=== PATIENT | male | born 1995 | race Two or more races ===

== ENCOUNTER 2017-08-21 02:48 | Emergency (ER) | payer SELFPAY ==
[2017-08-21] MEDS ORDERED: HALOPERIDOL LACT 5 MG/ML INJ ONE (02:59)
[2017-08-21] MEDS ORDERED: HALOPERIDOL LACT 5 MG/ML INJ IVP ONE (03:07)
[2017-08-21] MEDS ORDERED: ONDANSETRON 4 MG/2 ML VIAL IVP ONE (03:07)
[2017-08-21 03:11] VITALS: TEMP 97.2
--- NOTE | 2017-08-21 05:01 | EDPHY ---
H & P Stated Complaint: ETOH and combative Time Seen by Provider: 08/21/17 02:52 HPI/ROS: HPI The [facility] where he was taken for alcohol intoxication with combative behavior. He was yelling and screaming there and fell several times and vomited. He was too difficult to manage there so he was transferred here via EMS. The patient denies any complaints currently. REVIEW OF SYSTEMS Constitutional: No fever, no chills. Eyes: No discharge. ENT: No sore throat. Cardiovascular: No chest pain, no palpitations. Respiratory: No cough, no shortness of breath. Gastrointestinal: No abdominal pain, no vomiting. Genitourinary: No hematuria. Musculoskeletal: No back pain. Skin: No rashes. Neurological: No headache. PMHx: Healthy Soc Hx: Alcohol use PHYSICAL General Appearance: Alert, no distress Head: Forehead abrasion Eyes: Pupils equal and round no pallor or injection ENT, Mouth: Mucous membranes moist Respiratory: There are no retractions, lungs are clear to auscultation Cardiovascular: Regular rate and rhythm Gastrointestinal: Abdomen is soft and non-tender, no masses, bowel sounds normal Neurological: A&O, moves all extremities Skin: Warm and dry, no rashes Musculoskeletal: Neck is supple non tender Extremities: symmetrical, full range of motion Psychiatric: Patient is agitated, yelling and screaming Source: Patient, EMS Exam Limitations: Intoxication - Personal History Current Tetanus/Diphtheria Vaccine: Unsure Current Tetanus Diphtheria and Acellular Pertussis (TDAP): Unsure - Medical/Surgical History Hx Asthma: No Hx Chronic Respiratory Disease: No Hx Diabetes: No Hx Cardiac Disease: No Hx Renal Disease: No Hx Cirrhosis: No Hx Alcoholism: No Hx HIV/AIDS: No Hx Splenectomy or Spleen Trauma: No - Social History Smoking Status: Unknown if ever smoked Constitutional: Initial Vital Signs Temperature (C) 36.2 C 08/21/17 03:00 Heart Rate 94 08/21/17 03:00 Respiratory Rate 18 08/21/17 03:00 Blood Pressure 118/73 08/21/17 03:00 O2 Sat (%) 93 08/21/17 03:00 O2 Delivery Mode Room Air Allergies/Adverse Reactions: Unable to Assess Allergy (Unverified 08/21/17 03:11) Home Medications: Medication Instructions Recorded Unobtainable 08/21/17 Medical Decision Making Differential Diagnosis: 22-year-old man [facility] from [facility] with alcohol intoxication and combative behavior as well as vomiting. On arrival, he has normal vital signs though is continually agitated, yelling at staff, unable to deescalate. On arrival, he was given Haldol 5 mg IV and Zofran for vomiting. He was monitored for several hours and became more awake and alert. He had no ongoing vomiting. On reassessment, he denied any complaints and said he was feeling quite well. He does not have a headache, changes in his vision, any neurologic deficits. He will be discharged to the [facility]. Differential diagnoses considered include alcohol intoxication, cocaine intoxication, closed head injury. - Data Points Medications Given: Discontinued Medications Haloperidol Lactate (Haldol Injection) 5 mg IVP EDNOW ONE Stop: 08/21/17 03:08 Last Admin: 08/21/17 03:08 Dose: 5 mg Ondansetron HCl (Zofran) 8 mg IVP EDNOW ONE Stop: 08/21/17 03:08 Last Admin: 08/21/17 03:08 Dose: 8 mg Departure - Departure Disposition: Home, Routine, Self-Care Clinical Impression: Alcoholic intoxication, Vomiting Condition: Good Instructions: Alcohol Intoxication (ED) Referrals: [facility] [Outside] - As per Instructions
[2017-08-21 06:58] VITALS: BP 100/63; PULSE 100; RESP 16; O2SAT 95
== END 2017-08-21 07:16 | disposition home or self-care (01) ==
DX: F10.129 Alcohol abuse with intoxication, unspecified (principal)
CPT/HCPCS: 96374; J1630

== ENCOUNTER → 2017-08-22 | Outpatient (CLI) | payer OTHER | LOC: BMCIMAGING 15:34 | PROVIDERS: ATTEND Family Medicine | DX: S69.92XA Unspecified injury of left wrist, hand and finger(s), initial encounter (principal) ==